=== PATIENT | female | born 1995 | race Caucasian/White ===

== ENCOUNTER 2020-04-15 16:35 | Inpatient (IN) | payer OTHER ==
[2020-04-15] VITALS (22 sets, daily range): BP systolic 104–148; BP diastolic 57–94
[~2020-04-15] VITALS: Ht 154.9 cm; Wt 66.5 kg
[2020-04-15] MEDS ORDERED: PRENTAB9 PO (16:47)
[2020-04-15] MEDS ORDERED: ALBU83IN INH (16:50)
[2020-04-15] MEDS ORDERED: IRON65TA2 PO (16:50)
[2020-04-15] MEDS ORDERED: VITA100T59 PO (16:50)
[2020-04-15] MEDS ORDERED: LACTATED RINGER'S 1000 ML IV STA (16:59)
--- NOTE | 2020-04-15 17:12 | HPEPDOC ---
Obstetrical History & Physical General Date of Admission History of Present Illness 25yo at 41+0wks presenting for c/o worsening painful ctx's. Endorses spotting VB. Denies LOF or DFM. Chief Complaint: Contractions, term Information Provided By: Patient Care Care: Good Care Dating Final EDC: Apr 08, 2020 Final EDC for Daily Update: Apr 08, 2020 Final EDC by: LMP ([id number]) Antepartum Course Diagnos(e)s SMA carrier - FOB negative Anemia complicating Height (inches): 61.5 Pre- weight (lbs.): 120 Admission Weight (lbs.): 151 Change in Weight (lbs.): 31 Past Medical History Past Obstetrical History : Past Obstetrical History: Primgravida [employer]OR [employer]LLIGENCE History: No pertinent history Past Medical History Medical History Asthma Anemia SMA carrier Surgical History: Denies/None Family History Significant Family History: Hypertension Social History Marital Status: Family situation: Spouse/partner home Psychosocial History: No pertinent psych hx * Smoker: non-smoker Alcohol: Denies Drugs: denies Abuse Violence Screening Have you been hit/kicked/slapp: No Have you been sexually assault: No Imunizations Tdap status: current Influenza Status: current Allergies Coded Allergies: No Known Allergies (Unverified , 04/15/20) Medications Scheduled Ascorbic Acid (Vitamin C) 100 Mg Tablet, 1 TAB PO BID Ferrous Sulfate (Iron) 325 Mg Tablet, 1 TAB PO BID No.137/Iron/Folic Acd ( Vitamin Tablet) 1 Each Tablet, 1 TAB PO DAILY Scheduled PRN Albuterol Sulf (Albuterol Sulfate) 2.5 Mg/3 Ml Vial.neb, 2.5 MG INH for RESPIRATORY DISTRESS Physical Examination Physical Examination GENERAL: Alert and oriented times three. ABDOMEN: Gravid and non-tender to touch. FETUS: Is vertex (VTX) by sterile vaginal examination (SVE), fetus is vertex (VTX) by Adrian. HEART RATE: well-perfused LUNGS: no exaggerated respiratory effort appreciated. EXTREMITIES: No edema. : NEFG, no abnml vaginal discharge, spotting VB noted, no pooling Vital Signs/I&O Vital Signs Date Time Temp Pulse Resp B/P (MAP) Pulse Ox O2 Delivery O2 Flow Rate FiO2 04/15/20 16:52 98.0 20 04/15/20 16:47 122/83 (96) Laboratory Data Urine Culture: Urinary Tract Infection (SOLO negative) Pertinent Laboratoy Data Blood Type: O+ RBC Antibody Screen: Negative HIV: Negative Hepatitis B: Negative Rapid Plasma Reagin: Nonreactive Rubella: Immune Varicella: Immune Chlamydia/Gonorrhea: Negative Group B Streptococcus: Negative Glucose Tolerance Test: 90 Anatomy Ultrasound Ultrasound Date: Oct 03, 2019 Placenta Location: Posterior Normal Anatomy: Yes Placenta Previa: No Vaginal Examination Dilation: 3 cm Effacement: 100% Station: -2 Cervical Consistency: Soft Cervical Position: Posterior Presentation: Cephalic presentation Assessment Heart Rate (FHR): 140 Variability: Moderate Accelerations: Positive Decelerations: None Tocometer Contractions: Yes Frequency: regular, every 1-3 min. Multi-drug resistant Organism: No history of MDRO Assessment/Plan Assessment 25yo at 41+0wks presenting for c/o worsening painful ctx's. SVE 3/c/-2 with membranes intact. Slana showing regular ctx's q2-3min. NST reactive. GBS neg. Plan Admit and orient. 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 Diet: clears Patient may have epidural for pain mgmt if desired Group B Streptococcus (GBS) [negative]. Labs and intravenous (IV) per unit protocol. Counseled on Pitocin and induction of labor (IOL). Lactated Ringers (LR): Bolus 1000mL, then at 125 mL/hr. Anticipate [normal spontaneous delivery ()]. C-S as appropriate. KLARISSA MURPHY DO Apr 15, 2020 17:11
[2020-04-15 17:52] LABS: HEMATOCRIT 33.4 % (36.0-47.0); HEMOGLOBIN 10.1 g/dl (12.0-15.5); MEAN CORPUSCULAR HEMOGLOBIN 23.5 pg (27.0-33.0); MEAN CORPUSCULAR HGB CONC 30.2 g/dl (32.0-36.5); MEAN CORPUSCULAR VOLUME 77.7 fl (80.0-96.0); PLATELET COUNT, AUTOMATED 267 10^3/uL (150-450); WHITE BLOOD COUNT 13.2 10^3/uL (4.0-10.0)
[2020-04-15] MEDS ORDERED: FENTANYL 2MCG/ML ROPIVACAINE 0.2% IN 0.9% NACL 100ML IVBAG As Ordered ONE (18:19)
[2020-04-15] MEDS: LR 1,000 ML IV SCH ×2 (18:40→19:02)
[2020-04-15] MEDS ORDERED: diphenhydrAMINE 50MG/ML VIAL (J1200) IV PRN (19:15)
[2020-04-15] MEDS ORDERED: LACTATED RINGER'S 1000 ML IV PRN (19:15)
[2020-04-15] MEDS ORDERED: EPIDURAL/PCA KEYS XX PRN (19:15)
[2020-04-15] MEDS ORDERED: REFRIGERATOR IV KEYS XX PRN (19:15)
[2020-04-15] MEDS ORDERED: FENTANYL/ROPIVACAINE/NACL BAG 100 ML EPIDURAL SCH (19:15)
[2020-04-15] MEDS ORDERED: ePHEDrine SULFATE 25 MG/5 ML(5MG/ML) SYRINGE IV PRN (19:15)
[2020-04-15] MEDS ORDERED: ONDANSETRON 4MG/2ML VIAL IV PRN (19:15)
[2020-04-15] MEDS ORDERED: NALOXONE INJ 0.4MG/1ML VIAL (J2310 PER 1MG) IV PRN (19:15)
[2020-04-15] MEDS ORDERED: EPIDURAL COMMENT XX SCH (19:15)
[2020-04-16] VITALS (16 sets, daily range): BP systolic 102–137; BP diastolic 54–85
--- NOTE | 2020-04-16 00:27 | IPNPDOC ---
Obstetrical Progress Note Date of Service Apr 16, 2020 Subjective Patient reports feeling comfortable after epidural. Denies any complaints at this time. Objective Vital Signs Date Time Temp Pulse Resp B/P (MAP) Pulse Ox O2 Delivery O2 Flow Rate FiO2 04/15/20 21:48 91 18 115/76 (89) 04/15/20 19:26 97.5 Assessment Heart Rate (FHR): 130 Variability: Moderate Accelerations: Positive Decelerations: None Heart Rate Tracing: Category I Tocometer Contractions: Yes Frequency: every 1-3 min. Sterile Vaginal Examination Dilation: 7 cm Effacement (%): 100% Station: -1 Cervical Consistency: Soft Cervical Position: Anterior Postion/Presentation: Cephalic presentation Assessment and Plan Status: Reassuring Group B Streptococcus: Negative Anticipate: Vaginal Delivery Additional Comments Patient progressed to 7/c/-1. AROM performed notable for meconium fluid. FHRT cat I. Will continue to monitor for expectant . KLARISSA MURPHY DO Apr 16, 2020 00:27
[2020-04-16] MEDS ORDERED: OXYTOCIN 30 UNITS IN 0.9% NaCl 500ML IV BAG (J2590) As Ordered ONE (04:52)
[2020-04-16] MEDS ORDERED: OXYTOCIN DRIP 30 UNITS in IV 1 EA IV SCH (05:36)
[2020-04-16] MEDS ORDERED: BENZOCAINE 20% HEMORRHOIDAL OINTMENT 28GM TUBE TOP PRN (05:45)
[2020-04-16] MEDS ORDERED: ACETAMINOPHEN TAB 650MG DOSE (2X325MG) PO PRN (05:45)
[2020-04-16] MEDS ORDERED: IBUPROFEN 600MG TAB PO PRN (05:45)
[2020-04-16] MEDS ORDERED: MOM 30ML SUSPENSION UDC PO PRN (05:45)
[2020-04-16] MEDS ORDERED: ACETAMINOPHEN 500 MG TAB PO PRN (05:45)
[2020-04-16] MEDS ORDERED: ANUSOL HC CREAM 30GM TOP PRN (05:45)
--- NOTE | 2020-04-16 06:23 | DNPDOC ---
[facility] Delivery Note Delivery Note DATE OF DELIVERY: 04/16/2020 PREDELIVERY DIAGNOSIS: 41+1/7 weeks' gestation and labor. POST DELIVERY DIAGNOSIS: Delivered. 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 Klarissa Phillips ANESTHESIA: Epidural ESTIMATED BLOOD LOSS: 300mL. FINDINGS: 7 pound 6 ounce 3356g male , Score 3,6,8, no nuchal cord, no meconium. DELIVERY SUMMARY: Called to bedside for concern of patient having variable decels. Patient had started pushing upon being found to be c/c/+1. Upon arrival, noted FHRT to be cat II with late decels and variable decels. Attempted intrauterine resuscitation with stopping pushing, repositioning to right and left sides, IV fluid bolus, and maternal O2. Upon improvement in FHRT, attempted to start pushing again with excellent descent noted to +2 station. However, FHRT resulted in recurrent late decels. Patient counseled on recommendation for operative delivery for NRFHR. Patient amenable to trial of vacuum. Bladder had been drained by recently removed root catheter, head position thought to be OP, kiwi vacuum placed over flexion point and suction applied to the green during patient pushing with contraction. Over several sets of contractions, head brought to +4 station. At this time, spontaneous head rotation noted from LOP to ROP. No pop-offs noted and suction released between contractions. head delivered in ROP position and kiwi vacuum removed. Left anterior shoulder delivered without difficulty followed by body. Due to thick meconium, aggressive bulb suctioning performed on delivery field. placed on maternal abdomen for stimulation, after 1 minute, poor tone, color, and respiratory effort noted therefore 3VC clamped x2 and quickly cut by FOB. was then taken to warmer for further resuscitation. Pitocin IV bolus initiated upon delivery of . Cord blood sample obtained. Third stage spontaneous with intact placenta. Fundal massage revealed firm uterine tone and hemostasis. Inspection revealed 1st degree perineal laceration with large vaginal mucosal flap noted. This was repaired to reapproximate normal vaginal anatomy and achieve hemostasis using 2-0 vicryl. EBL 300ml. Mother and infant stable and bonding upon my leaving the room. KLARISSA PHILLIPS DO Apr 16, 2020 06:23
[2020-04-16] MEDS: IBUPROFEN 800 MG TAB PO PRN ×2 (07:37→18:13)
[2020-04-16] MEDS ORDERED: INFLUENZA QUADRIVALENT PF VACCINE 0.5ML SYRINGE IM ONE (09:00)
[2020-04-16] MEDS: DOCUSATE SODIUM 100MG CAPSULE PO SCH ×2 (10:07→21:13)
[2020-04-16] MEDS: PRENATAL VITAMINS CHEWABLE TABLET PO SCH (10:07)
[2020-04-17] MEDS: IBUPROFEN 800 MG TAB PO PRN (05:43)
[2020-04-17 05:48] VITALS: BP 112/58
--- NOTE | 2020-04-17 08:23 | IPNPDOC ---
Progress Note Date of Service: Apr 17, 2020 Day#: 1 Progress Note SUBJECT: 25year-old 1 now Para 1 status post uncomplicated vacuum assi sted vaginal delivery at 41.1 weeks' at on 04/15/20of a male 7pounds 6 ounces 3356 grams) with post vaginal laceration and repair, doing well day # 2 She has been ambulating, voiding spontaneously without issue and tolerating regular diet. Breast feeding without issue. Reports lochia is [like a normal period]. Patient is ambulating well. [Reports some cramping with . Denies any pain. Voiding and stooling without difficulty]. OBJECTIVE: VITAL SIGNS: Within normal limits, afebrile. Alert and oriented times three. Breath sounds clear to auscultation. Heart rate: Regular rate and rhythm, no murmurs, rubs or gallops. Abdomen: Fundus firm at U-2. Soft, NTTP. [Minimal] lochia. ASSESSMENT: 25-year-old 1now Para 1 status post uncomplicated spontaneous vaginal delivery after presenting in active labor with spontaneous rupture of membranes (SROM), delivered at 41.2 weeks', doing well on day 2. Vitals within normal limits, afebrile, hemodynamically stable with no evidence of infection. PLAN: 1. Discharge to home today. 2. Tylenol and Motrin for pain. 3. Encourage breast feeding and ambulation. 4. discuss BC at 6 week pp visit 5. Routine PP visit in 6 weeks in clinic. 6. Discussed return precautions at length. Item Value Date Time White Blood Count 13.2 10^3/uL H 04/15/20 1740 Red Blood Count 4.30 10^6/uL 04/15/20 1740 Hemoglobin 10.1 g/dl L 04/15/20 1740 Hematocrit 33.4 % L 04/15/20 1740 Mean Corpuscular Volume 77.7 fl L 04/15/20 1740 Mean Corpuscular Hemoglobin 23.5 pg L 04/15/20 1740 Mean Corpuscular Hemoglobin Concent 30.2 g/dl L 04/15/20 1740 Red Cell Distribution Width 15.9 % H 04/15/20 1740 Platelet Count 267 10^3/uL 04/15/20 1740 Nucleated Red Blood Cells % (auto) 0.0 % 04/15/20 1740 VS, I&O, 24H, Fishbone Vital Signs/I&O Vital Signs Date Time Temp Pulse Resp B/P (MAP) Pulse Ox O2 Delivery O2 Flow Rate FiO2 04/17/20 05:48 97.5 87 15 112/58 (76) 99 Room Air I&O- Last 24 Hours up to 6 AM 04/17/20 06:00 Intake Total 5294 ml Output Total 200 ml Balance 5094 ml Boby Aguilar MD Apr 17, 2020 08:21
[2020-04-17] MEDS ORDERED: IBUP-1022 PO (08:26)
[2020-04-17] MEDS ORDERED: DOK1CAP7 PO (08:26)
[2020-04-17] MEDS: PRENATAL VITAMINS CHEWABLE TABLET PO SCH ×2 (09:00→09:30)
[2020-04-17] MEDS: DOCUSATE SODIUM 100MG CAPSULE PO SCH (09:00)
[2020-04-18] MEDS ORDERED: ROLLMIS8 XX (16:35)
== END 2020-04-17 13:00 | disposition home or self-care (01) | DRG 807 ==
LOC: M LDO 16:35 → M LDI 17:02 → M OBS 04-16 08:36
PROVIDERS: ADMIT Registered Nurse Maternal Newborn; ATTEND Registered Nurse Maternal Newborn
PROC: 10D07Z6 Extraction of Products of Conception, Vacuum, Via Natural or Artificial Opening (ICD-10-PCS; principal; 2020-04-16)
PROC: 0HQ9XZZ Repair Perineum Skin, External Approach (ICD-10-PCS; 2020-04-16)
DX: O48.0 Post-term pregnancy (principal); Z37.0 Single live birth; Z3A.41 41 weeks gestation of pregnancy; O77.0 Labor and delivery complicated by meconium in amniotic fluid; O76 Abnormality in fetal heart rate and rhythm complicating labor and delivery; O70.0 First degree perineal laceration during delivery

== ENCOUNTER 2020-04-18 10:51 | Emergency (ER) | payer OTHER ==
[~2020-04-18] VITALS: Ht 154.9 cm; Wt 59.1 kg
[~2020-04-18 10:51] MED LIST: ALBU83IN INH; DOK1CAP7 PO; IBUP-1022 PO; IRON65TA2 PO; PRENTAB9 PO; VITA100T59 PO
--- NOTE | 2020-04-18 14:00 | REP ---
INDICATION: pain over pubic bone into R hip, PP x 2 days. COMPARISON: None. TECHNIQUE: Single AP view of the pelvis FINDINGS: Osseous structures and joint spaces are intact, symmetric and essentially age-appropriate. No evidence for acute or healed injury. No periosteal reaction. Surrounding soft tissues are unremarkable. IMPRESSION: Normal pelvic radiograph. <Electronically signed by Ranjan Mclean > 04/18/20 [id number]
--- NOTE | 2020-04-18 14:11 | REP ---
INDICATION: swelling pain thigh, concern clot 2 days PP. COMPARISON: None. TECHNIQUE: Right lower extremity duplex venous ultrasound. FINDINGS: The deep veins are anechoic and fully compressible from the groin to the popliteal fossa in the right lower extremity. Color flow imaging is homogeneous. Spectral Doppler interrogation demonstrates intact respiratory variation in flow and normal manual augmentation of flow. There is no evidence of deep vein thrombosis. IMPRESSION: Negative right lower extremity duplex venous ultrasound. No evidence of deep vein thrombosis. <Electronically signed by Benjamin Harris > 04/18/20 [id number]
[2020-04-18] MEDS ORDERED: IBUPROFEN 800 MG TAB PO ONE (15:00)
[2020-04-18] MEDS ORDERED: ROLLMIS8 XX (16:35)
--- NOTE | 2020-04-18 16:51 | REP ---
INDICATION: severe pain suprapubic into R hip, concern PP hematoma. COMPARISON: None. TECHNIQUE: Axial noncontrast images through the pelvis with coronal and sagittal reformations. FINDINGS: A markedly enlarged uterus is identified extending beyond the superior-most imaged portion of the lower abdomen and appears to measure greater than 20 cm in length and 9 cm in diameter. Further investigation is recommended by ultrasound.. The urinary bladder is moderately distended and likely transient. Visualized portions of the small and large bowel are grossly unremarkable. No pelvic free fluid. No adenopathy. Surrounding musculoskeletal structures are intact. IMPRESSION: Pain is most likely related to a markedly, grossly enlarged uterus measuring greater than 20 cm in craniocaudal length and 9 cm diameter extending beyond the superior portion of the imaged lower abdomen. <Electronically signed by Ranjan Mclean > 04/18/20 [id number]
[2020-04-18 17:12] VITALS: BP 114/71
== END 2020-04-18 17:14 | disposition home or self-care (01) ==
LOC: M ED 10:51
DX: O90.89 Other complications of the puerperium, not elsewhere classified (principal); R10.2 Pelvic and perineal pain; M79.604 Pain in right leg; J45.909 Unspecified asthma, uncomplicated

== ENCOUNTER 2021-05-27 11:36 | Day surgery (SDC) | payer OTHER ==
[~2021-05-27] VITALS: Ht 154.9 cm; Wt 62.6 kg
[~2021-05-27 11:36] MED LIST changes: +ADV250INH INH; +CETI10CH PO; +CLOB0.0548 TOP; +DOK1CAP4 PO; -DOK1CAP7 PO; +DUPI300I SC; +HYDR-3363 PO; +LR 1,000 ML IV ONE; +PROAAER10 INH; +ROLLMIS8 XX
[2021-05-27 12:07] LABS: HEMATOCRIT 35.2 % (36.0-47.0); HEMOGLOBIN 10.7 g/dl (12.0-15.5); MEAN CORPUSCULAR HEMOGLOBIN 23.6 pg (27.0-33.0); MEAN CORPUSCULAR HGB CONC 30.4 g/dl (32.0-36.5); MEAN CORPUSCULAR VOLUME 77.7 fl (80.0-96.0); PLATELET COUNT, AUTOMATED 308 10^3/uL (150-450); RED BLOOD COUNT 4.53 10^6/uL (4.00-5.40); WHITE BLOOD COUNT 4.1 10^3/uL (4.0-10.0)
[2021-05-27 12:34] LABS: BLOOD UREA NITROGEN 8 MG/DL (7-18); CALCIUM LEVEL 8.9 MG/DL (8.5-10.1); CARBON DIOXIDE LEVEL 23 MEQ/L (21-32); CHLORIDE LEVEL 109 MEQ/L (98-107); CREATININE FOR GFR 0.75 MG/DL (0.55-1.30); GLOMERULAR FILTRATION RATE > 60.0 (>60); GLUCOSE, FASTING 88 MG/DL (70-100); POTASSIUM SERUM 3.4 MEQ/L (3.5-5.1); SODIUM LEVEL 139 MEQ/L (136-145)
[2021-05-27] MEDS ORDERED: fentaNYL 250 MCG/5 ML INJECTION As Ordered ONE (12:44)
[2021-05-27] MEDS ORDERED: dexameTHASONE 4 MG/ML 1ML VIAL (J1100 PER 1MG) As Ordered ONE (12:45)
[2021-05-27] MEDS ORDERED: LIDOCAINE 2% 100MG/5ML SDV (FOR ANES.) As Ordered ONE (12:45)
[2021-05-27] MEDS ORDERED: KETOROLAC 60MG 2ML VIAL As Ordered ONE (12:45)
[2021-05-27] MEDS ORDERED: propofoL 200 MG/20 ML VIAL As Ordered ONE (12:45)
[2021-05-27] MEDS ORDERED: ONDANSETRON 4MG/2ML VIAL As Ordered ONE (12:45)
[2021-05-27] MEDS ORDERED: MIDAZOLAM INJ 2MG/2ML VIAL (J2250 PER 1MG) As Ordered ONE (12:45)
[2021-05-27] MEDS ORDERED: ACETAMINOPHEN 650 MG SUPP As Ordered ONE ×2 (13:27→16:19)
[2021-05-27 13:34] LABS: HCG, SERUM QUANTITATIVE < 1.0 MIU/ML
[2021-05-27] MEDS ORDERED: ePHEDrine INJ 50 MG/ML VIAL As Ordered ONE (16:55)
[2021-05-27] MEDS ORDERED: fentaNYL 100 MCG/2 ML INJECTION IV PRN (17:40)
[2021-05-27] MEDS ORDERED: HYDROMORPHONE HCL 0.5 MG/ 0.5 ML SYRINGE (J1170 PER 1) IV PRN (17:40)
[2021-05-27] MEDS ORDERED: LR 1,000 ML IV SCH (17:40)
[2021-05-27] MEDS ORDERED: oxyCODONE 5MG TAB PO PRN (17:40)
[2021-05-27] MEDS ORDERED: ONDANSETRON 4MG/2ML VIAL IV PRN (17:40)
[2021-05-27 18:35] VITALS: BP 123/82
== END 2021-05-27 18:40 | disposition home or self-care (01) ==
LOC: M SDC 11:36
PROVIDERS: ATTEND Obstetrics & Gynecology
DX: N93.9 Abnormal uterine and vaginal bleeding, unspecified (principal); J45.909 Unspecified asthma, uncomplicated; L40.9 Psoriasis, unspecified; Z79.51 Long term (current) use of inhaled steroids; Z79.899 Other long term (current) drug therapy
CPT/HCPCS: 36415; 58558; 80048; 84702; 85027; 87624; 88305; G0123; J1100; J1885; J2250; J2405; J3010

== ENCOUNTER 2022-11-03 15:35 | Emergency (ER) | payer OTHER ==
[~2022-11-03] VITALS: Ht 154.9 cm; Wt 61.7 kg
[~2022-11-03 15:35] MED LIST changes: +ALBU2.5V10 INH; -ALBU83IN INH; -LR 1,000 ML IV ONE
[2022-11-03 16:52] LABS: BASO # 0.1 10^3/uL (0.0-0.2); BASO % 1.4 % (0.0-1.0); EOS # 0.3 10^3/uL (0.0-0.5); EOS % 4.3 % (0.0-3.0); HEMOGLOBIN 9.6 g/dl (12.0-15.5); LYMPH # 1.5 10^3/uL (1.5-5.0); LYMPH % 26.4 % (24.0-44.0); MEAN CORPUSCULAR HEMOGLOBIN 20.7 pg (27.0-33.0); MEAN CORPUSCULAR HGB CONC 28.2 g/dl (32.0-36.5); MEAN CORPUSCULAR VOLUME 73.3 fl (80.0-96.0); MONO # 0.3 10^3/uL (0.0-0.8); NEUTROPHILS # 3.7 10^3/uL (1.5-8.5); NEUTROPHILS % 62.6 % (36.0-66.0); PLATELET COUNT, AUTOMATED 434 10^3/uL (150-450); RED BLOOD COUNT 4.64 10^6/uL (4.00-5.40); WHITE BLOOD COUNT 5.8 10^3/uL (4.0-10.0)
[2022-11-03 17:13] LABS: BLOOD UREA NITROGEN 10 MG/DL (9-23); CALCIUM LEVEL 9.1 MG/DL (8.5-10.1); CARBON DIOXIDE LEVEL 24 MMOL/L (20-31); CHLORIDE LEVEL 106 MMOL/L (98-107); CREATININE FOR GFR 0.63 MG/DL (0.55-1.30); GLOMERULAR FILTRATION RATE > 60.0 (>60); GLUCOSE, FASTING 85 MG/DL (60-100); HCG, SERUM QUANTITATIVE 329.2 MIU/ML (<4.2); POTASSIUM SERUM 4.1 MMOL/L (3.5-5.1); SODIUM LEVEL 140 MMOL/L (136-145)
[2022-11-03 23:10] VITALS: TEMP 98
[2022-11-04 01:14] VITALS: BP 120/66; O2SAT 100
== END 2022-11-04 01:14 | disposition home or self-care (01) ==
LOC: M ED 15:35
DX: O20.0 Threatened abortion (principal); Z3A.01 Less than 8 weeks gestation of pregnancy; Z79.52 Long term (current) use of systemic steroids; Z79.899 Other long term (current) drug therapy